=== PATIENT | female | born 1950 | race Caucasian/White ===

== ENCOUNTER 2016-11-02 17:35 | Inpatient (IN) ==
[2016-11-02 18:44] LABS: Appearance,Urine HAZY; Bacteria,Urine FEW /hpf (0); Bilirubin,Urine NEG (NEG); Color,Urine YELLOW; Glucose,Urine (UA) NEGATIVE (NEG); Leukocyte Esterase,Urine 250 /uL (NEG); Mucus,Urine FEW /hpf (0); Nitrate,Urine POS (NEG); Protein,Urine 30 mg/dL (NEG); Specific Gravity,Urine 1.015 (1.000-1.035); Urine Blood 0.03 mg/dL (<0.03); Urine RBC 4 /hpf (0-1); Urine Squamous Epithelial Cell 4 /hpf (0-4); Urine Transitional Epi Cells < 1 /hpf (0-2); Urine WBC 131 /hpf (0-4); Urobilinogen,Urine NEG (NEG)
[2016-11-02 19:03] LABS: Basophils # (Auto) 0 K/mcL (0.0-0.3); Basophils % (Auto) 0 % (0.0-2.0); Eosinophils # (Auto) 0 K/mcL (0.0-0.7); Eosinophils % (Auto) 0.1 % (0.0-7.0); Granulocytes % (Auto) 91.8 % (38.0-78.0); Lymphocytes # (Auto) 0.5 K/mcL (1.5-4.8); Lymphocytes % (Auto) 3.5 % (15.5-49.0); Mean Cell Volume 83.6 fL (80.0-100.0); Mean Corpuscular HGB Conc 32.3 g/dL (31.0-36.0); Monocytes # (Auto) 0.6 K/mcL (0.1-0.9); Monocytes % (Auto) 4.6 % (1.0-9.0); Platelet Count 221 K/mcL (140-440); RBC 4.53 M/mcL (4.00-5.20); Red Cell Distribution Width 14.4 % (11.5-14.5)
--- NOTE | 2016-11-02 19:06 | Emergency Department Note ---
Fever HPI - General Chief Complaint: Fever Stated Complaint: SOB, fever Time Seen by Provider: 11/02/16 17:36 Source: family (Her is with her today), EMS Mode of arrival: EMS Limitations: no limitations - History of Present Illness HPI Narrative: 66-year-old female presents with confusion and fever. She was brought in by EMS and is accompanied by her . Recently she has had sinus congestion and frequently gets sinus infections. She has a history of hydrocephalus. She started having chills earlier today and when her came home from work he found her half way on the bed. She denies any falls. She is extremely weak and confusion has gotten better since she is been in the ED. She has not had any urinary symptoms or abdominal pain. She has not had any GI symptoms. She has not started any new medications. She is prediabetic. She was taking metformin for this but has stopped in the past couple weeks. He does not have any numbness or tingling. She does have a headache. She is not able to ambulate on her own when EMS arrived. - Related Data Home Medications Medication Instructions Recorded Confirmed Bisoprolol/Hctz 5Mg [Ziac 5Mg] 2.5 mg PO DAILY 08/20/15 11/02/16 Lansoprazole [Prevacid] 30 mg PO DAILY 08/20/15 11/02/16 Levothyroxine [Synthroid] 75 mcg PO DAILY 08/20/15 11/02/16 Citalopram Hydrobromide 10 mg PO DAILY 11/02/16 11/02/16 [Citalopram HBr] Losartan [Cozaar] 50 mg PO BID 11/02/16 11/02/16 Oxybutynin Chloride [Ditropan] 5 mg PO DAILY 11/02/16 11/02/16 Allergies Allergy/AdvReac Type Severity Reaction Status Date / Time moxifloxacin [From Avelox] Allergy Severe Hives Verified 08/20/15 16:04 Review of Systems All systems ED: reviewed and negative except as stated. Fever PMH - Past Medical History Medical history: Reports: diabetes, other (hydrocephalus) Physical Exam - General Limitations: no limitations, altered mental status (She has confusion on and off throughout her stay in the ED) General appearance: alert, in no apparent distress - Head Head exam: atraumatic - Eye Eye exam: Present: normal appearance, periorbital tenderness (maxillary sinuses) - ENT ENT exam: normal exam, normal oropharynx, mucous membranes moist, TM's normal bilaterally - Neck Neck exam: Present: normal inspection, full ROM. Absent: tenderness, lymphadenopathy - Chest Chest inspection: Present: normal inspection, symmetric chest wall rise - Respiratory Respiratory exam: Present: normal lung sounds bilaterally. Absent: wheezes - Cardiovascular Cardiovascular exam: Present: tachycardia, normal heart sounds - Abdominal Exam Abdominal exam: Present: soft, normal bowel sounds. Absent: distention, tenderness, guarding, rebound, rigidity - Extremities Exam Extremities exam: Present: normal inspection, full ROM - Neurological Exam Neurological exam: Present: alert, oriented X3 - Psychiatric Psychiatric exam: Present: normal affect, normal mood - Skin Skin exam: Present: warm, dry, intact Course Course Narrative: Patient will be admitted by the hospitalist. A first dose of azithromycin was started in the ED. Transfer of care to Dr. Banuelos Vital Signs Temperature 100.1 F H 11/02/16 17:35 Pulse Rate 109 H 11/02/16 17:35 Respiratory Rate 20 11/02/16 17:35 Blood Pressure 121/60 11/02/16 17:35 Pulse Oximetry (%) 95 11/02/16 17:35 Temperature 99.3 F 11/02/16 19:20 Pulse Rate 85 11/02/16 19:20 Respiratory Rate 22 11/02/16 19:20 Blood Pressure 118/50 11/02/16 19:20 Pulse Oximetry (%) 95 11/02/16 19:20 Fever - Lab Data Result diagrams: 11/02/16 18:19 11/02/16 18:19 Lab Results 11/02/16 11/02/16 11/02/16 Range/Units 18:05 18:19 18:19 WBC 13.9 H (4.5-11.0) K/mcL RBC 4.53 (4.00-5.20) M/mcL Hgb 12.2 (12.0-15.0) g/dL Hct 37.9 (36.0-48.0) % MCV 83.6 (80.0-100.0) fL MCH 27.0 (26.0-34.0) pg MCHC 32.3 (31.0-36.0) g/dL RDW 14.4 (11.5-14.5) % Plt Count 221 (140-440) K/mcL MPV 7.3 L (7.4-10.4) fL Gran % 91.8 H (38.0-78.0) % Lymph % (Auto) 3.5 L (15.5-49.0) % Foster % (Auto) 4.6 (1.0-9.0) % Eos % (Auto) 0.1 (0.0-7.0) % Baso % (Auto) 0 (0.0-2.0) % Gran # 12.7 H (1.8-8.0) K/mcL Lymph # 0.5 L (1.5-4.8) K/mcL Foster # 0.6 (0.1-0.9) K/mcL Eos # 0 (0.0-0.7) K/mcL Baso # 0 (0.0-0.3) K/mcL VBG Lactic Acid (0.5-2.2) mmol/L Sodium 138 (133-145) mmol/L Potassium 3.4 (3.3-5.1) mmol/L Chloride 100 (96-108) mmol/L Carbon Dioxide 25 (22-30) mmol/L Anion Gap 13.0 (8-16) BUN 14 (8-23) mg/dl Creatinine 1.0 (0.6-1.1) mg/dl GFR Calculation 58 Glucose 220 H (70-105) mg/dL Calcium 8.9 (8.6-10.4) mg/dl Total Bilirubin 0.7 (0.0-1.0) mg/dL AST 16 (0-37) U/l ALT 14 (0-40) U/l Alkaline Phosphatase 118 H (39-117) U/L C-Reactive Protein 9.8 H (0.0-0.8) mg/dl Total Protein 6.7 (5.9-8.4) gm/dL Albumin 3.9 (3.2-5.2) gm/dL Globulin 2.8 (2.2-3.7) gm/dL Albumin/Globulin Ratio 1.4 (1.0-2.3) Urine Color Yellow Urine Appearance Hazy Urine pH 5.0 (5.0-9.0) Ur Specific [place] 1.015 (1.000-1.035) Urine Protein 30 A (NEG) mg/dL Urine Glucose (UA) Negative (NEG) mg/dL Urine Ketones Neg (NEG) mg/dL Urine Occult Blood 0.03 A (<0.03) mg/dL Urine Nitrate Pos A (NEG) Urine Bilirubin Neg (NEG) mg/dL Urine Urobilinogen Neg (NEG) mg/dL Ur Leukocyte Esterase 250 A (NEG) /uL Urine RBC 4 H (0-1) /hpf Urine WBC 131 H (0-4) /hpf Ur Squamous Epith Cells 4 (0-4) /hpf Ur Transition Epith Cell < 1 (0-2) /hpf Urine Bacteria Few A (0) /hpf Urine Mucus Few (0) /hpf Ur Culture Indicated? Yes 11/02/16 Range/Units 18:19 WBC (4.5-11.0) K/mcL RBC (4.00-5.20) M/mcL Hgb (12.0-15.0) g/dL Hct (36.0-48.0) % MCV (80.0-100.0) fL MCH (26.0-34.0) pg MCHC (31.0-36.0) g/dL RDW (11.5-14.5) % Plt Count (140-440) K/mcL MPV (7.4-10.4) fL Gran % (38.0-78.0) % Lymph % (Auto) (15.5-49.0) % Foster % (Auto) (1.0-9.0) % Eos % (Auto) (0.0-7.0) % Baso % (Auto) (0.0-2.0) % Gran # (1.8-8.0) K/mcL Lymph # (1.5-4.8) K/mcL Foster # (0.1-0.9) K/mcL Eos # (0.0-0.7) K/mcL Baso # (0.0-0.3) K/mcL VBG Lactic Acid 1.4 (0.5-2.2) mmol/L Sodium (133-145) mmol/L Potassium (3.3-5.1) mmol/L Chloride (96-108) mmol/L Carbon Dioxide (22-30) mmol/L Anion Gap (8-16) BUN (8-23) mg/dl Creatinine (0.6-1.1) mg/dl GFR Calculation Glucose (70-105) mg/dL Calcium (8.6-10.4) mg/dl Total Bilirubin (0.0-1.0) mg/dL AST (0-37) U/l ALT (0-40) U/l Alkaline Phosphatase (39-117) U/L C-Reactive Protein (0.0-0.8) mg/dl Total Protein (5.9-8.4) gm/dL Albumin (3.2-5.2) gm/dL Globulin (2.2-3.7) gm/dL Albumin/Globulin Ratio (1.0-2.3) Urine Color Urine Appearance Urine pH (5.0-9.0) Ur Specific [place] (1.000-1.035) Urine Protein (NEG) mg/dL Urine Glucose (UA) (NEG) mg/dL Urine Ketones (NEG) mg/dL Urine Occult Blood (<0.03) mg/dL Urine Nitrate (NEG) Urine Bilirubin (NEG) mg/dL Urine Urobilinogen (NEG) mg/dL Ur Leukocyte Esterase (NEG) /uL Urine RBC (0-1) /hpf Urine WBC (0-4) /hpf Ur Squamous Epith Cells (0-4) /hpf Ur Transition Epith Cell (0-2) /hpf Urine Bacteria (0) /hpf Urine Mucus (0) /hpf Ur Culture Indicated? Disposition Clinical Impression: Urinary tract infection, Community acquired pneumonia, Sepsis Disposition: Xfer As Inpt ([facility]) Condition: Fair Referrals: Mohinder Malik MD [Primary Care Provider] -
[2016-11-02 19:22] LABS: ALT/SGPT 14 U/l (0-40); Albumin 3.9 gm/dL (3.2-5.2); Albumin/Globulin Ratio 1.4 (1.0-2.3); Alkaline Phosphatase 118 U/L (39-117); Blood Urea Nitrogen 14 mg/dl (8-23); C-Reactive Protein 9.8 mg/dl (0.0-0.8)
[2016-11-02] MEDS ORDERED: AZITHROMYCIN 500 MG in DEXTROSE 5% IN WATER 250 ML IV ONE (21:08)
[2016-11-02] MEDS ORDERED: cefTRIAXone 1 GM in DEXTROSE 5% IN WATER 50 ML IV ONE (21:24)
--- NOTE | 2016-11-02 21:34 | Internal Med History&Physical ---
Medical - H&P: HPI Patient information: Note initiated : 11/02/16 at 9:29 pm Service Date, if different from initiated Date: [] Patient: Shabana Espinosa 66 y/o F admitted on for SOB, fever. Chief Complaint: [] History of present illness: Ms. Espinosa is a 66 year old female who presents to the hospital with complaints of fever, chills, alerted mental status. The patient was her self 2 days ago, yesterday she was more tired than usual, and slept more. She also reported some chills. This am he condition worsened, she had fevers and chills with rigors, her found her in the house half on bed/ half on floor, she was confused. EMS was called who evaluated the patient and noted her to be hypoxic with 86% on Room air, tachycardic and febrile She was brought in the hospital for further management. In the ER the patient lab work showed that she had ua positive for UTI, wbc elevated, and elevated glucose, rest of the lab work was unremarkable, her X ray is not reported but appears negative to me, She received fluids in the ER and her mental status improved. She was at her baseline mental status during my eval. Her was at bedside to provide history. The patient noted she has had some cough, but denied any expectoration, she has sinus issues, which are chronic, She denied any burning urine, foul smelling urine, or increased frequency. She always has chr urinary increased frequency, so nothing out of ordinary. - Constitutional Constitutional: Present: chills, fever(s), malaise, weakness - EENT Eyes: Absent: change in vision, diplopia Nose, mouth and throat: Present: dizziness. Absent: dental pain, disequilibrium - Cardiovascular Cardiovascular: Absent: chest pain, chest pain at rest, palpatations, radiating pain, rapid heart rate, slow heart rate, syncope - Respiratory Respiratory: Present: cough. Absent: dyspnea on exertion, chest congestion, excessive phlegm production, change in phlegm color - Genitourinary Genitourinary: Present: urinary frequency, urinary urgency. Absent: urinary hesitancy, urinary incontinence - Musculoskeletal Musculoskeletal: Present: back pain. Absent: joint swelling, limited range of motion - Integumentary Integumentary: Absent: wounds, jaundice - Neurological Neurological: Present: headache(s). Absent: disequilibrium, dizziness, focal weakness, frequent falls - Psychiatric Psychiatric: Present: confusion. Absent: behavioral changes - Endocrine Endocrine: Absent: polydipsia, polyphagia, polyuria - Hematologic/Lymphatic Hematologic/Lymphatic: Absent: easy bleeding, easy bruising - Allergic/Immunologic Allergic/Immunologic: Absent: uticaria, wheezing Medical - H&P: PMH Medical history: h/ htn, dm, hld, hydrocephalus (no shunt placed) Surgical history: right knee replacement Pertinent family history: father with DM, cva, no other relevant history Social history: lives with no smoking, no etoh, no drugs Medical - H&P: Meds Home Medications Medication Instructions Recorded Confirmed Type Bisoprolol/Hctz 5Mg [Ziac 5Mg] 2.5 mg PO DAILY 08/20/15 11/02/16 History Lansoprazole [Prevacid] 30 mg PO DAILY 08/20/15 11/02/16 History Levothyroxine [Synthroid] 75 mcg PO DAILY 08/20/15 11/02/16 History Citalopram Hydrobromide 10 mg PO DAILY 11/02/16 11/02/16 History [Citalopram HBr] Losartan [Cozaar] 50 mg PO BID 11/02/16 11/02/16 History Oxybutynin Chloride [Ditropan] 5 mg PO DAILY 11/02/16 11/02/16 History Allergies Allergy/AdvReac Type Severity Reaction Status Date / Time moxifloxacin [From Avelox] Allergy Severe Hives Verified 08/20/15 16:04 Medical - H&P: Exam - Constitutional Vitals: Temp Pulse Resp BP Pulse Ox 99.3 F 85 22 118/50 95 11/02/16 19:20 11/02/16 19:20 11/02/16 19:20 11/02/16 19:20 11/02/16 19:20 General appearance: cooperative, no acute distress - Head Head exam: Present: atraumatic, normal inspection - Eye Eye exam: Present: PERRL. Absent: periorbital swelling, periorbital tenderness , scleral icterus - ENT ENT exam: Present: mucous membranes dry - Neck Neck exam: Present: normal inspection. Absent: tenderness - Respiratory Respiratory exam: Present: normal respiratory exam. Absent: accessory muscle use, prolonged expiratory phase, rhonchi, stridor, wheezes - Cardiovascular Cardiovascular exam: Present: normal rate and rhythm, +S1, +S2 - GI/Abdominal GI/Abdominal exam: Present: normal bowel sounds, soft. Absent: rebound, rigid, tenderness - Extremities Exam Extremities exam: Present: Foot pink and warm, neurovascular intact. Absent: pedal edema - Back Exam Back exam: Present: CVA tenderness (R), normal inspection. Absent: tenderness - Neurological Exam Neurological exam: Present: alert, CN II-XII intact, oriented X3. Absent: motor sensory deficit - Psychiatric Psychiatric exam: Absent: agitated, anxious - Skin Skin exam: Present: warm. Absent: rash, urticaria Medical - H&P: Reslt - Labs CBC & Chem 7: 11/02/16 18:19 11/02/16 18:19 Labs: Short CBC 11/02/16 Range/Units 18:19 WBC 13.9 H (4.5-11.0) K/mcL Hgb 12.2 (12.0-15.0) g/dL Hct 37.9 (36.0-48.0) % Plt Count 221 (140-440) K/mcL BMP 11/02/16 18:19 Sodium 138 Potassium 3.4 Chloride 100 Carbon Dioxide 25 BUN 14 Creatinine 1.0 Glucose 220 H Calcium 8.9 Liver Function 11/02/16 Range/Units 18:19 Total Bilirubin 0.7 (0.0-1.0) mg/dL AST 16 (0-37) U/l ALT 14 (0-40) U/l Alkaline Phosphatase 118 H (39-117) U/L Albumin 3.9 (3.2-5.2) gm/dL Urine 11/02/16 Range/Units 18:05 Urine Color Yellow Urine Appearance Hazy Urine pH 5.0 (5.0-9.0) Ur Specific [place] 1.015 (1.000-1.035) Urine Protein 30 A (NEG) mg/dL Urine Glucose (UA) Negative (NEG) mg/dL Medical - H&P: A/P (1) Pyelonephritis, acute Current visit: Yes Status: Acute (2) Sepsis Current visit: Yes Status: Acute (3) Hypertension Current visit: Yes Status: Acute (4) Diabetes mellitus Current visit: Yes Status: Acute (5) Back pain Current visit: Yes Status: Acute (6) Headache Current visit: Yes Status: Acute (7) Bronchitis Current visit: Yes Status: Acute (8) Acute respiratory failure with hypoxia Current visit: Yes Status: Acute - Narrative A/P Narrative: The patient is admitted to the hospital with diagnosis of acute pylenepritis with sepsis. He bp is stable, but she has elevated wbc, ua suggestive of uti and right cva tenderness. She will be treated with IV fluids, IV rocephin, will get urine and blood cultures. The patient has been called in as pna in the ER, X Ray looks ok to me, but she has increased oxygen requirements. For now will cover with doxycycline. Rocephin should cover any CAP, for now it seems she just has some bronchitis, flu is reported negative. DM borderline, glucose high today, will keep her on sliding scale insulin Hold bp medications for now, resume in AM if patient improves Oxygen supplementation via nasal canula to keep osat > 90 DVT - Hep sq Diet diabetic Progonosis guarded.
[2016-11-02] MEDS ORDERED: MAGNESIUM HYDROXIDE 30 ML ORAL.SUSP PO PRN (22:47)
[2016-11-02] MEDS ORDERED: MAG HYDROX/AL HYDROX/SIMETH 30 ML ORAL.SUSP PO PRN (22:47)
[2016-11-02] MEDS ORDERED: NALOXONE HCL 0.4 MG/ML VIAL IV PRN (22:47)
[2016-11-02] MEDS ORDERED: BISACODYL 10 MG SUPP.RECT PR PRN (22:47)
[2016-11-02] MEDS ORDERED: ONDANSETRON 4 MG/2 ML VIAL IV PRN (22:47)
[2016-11-02] MEDS ORDERED: oxyCODONE HCL 5 MG TABLET PO PRN (22:47)
[2016-11-02] MEDS ORDERED: FLEETS ADULT ENEMA PR PRN (22:47)
[2016-11-02] MEDS ORDERED: cefTRIAXone 1 GM in DEXTROSE 5% IN WATER 50 ML IV SCH (22:47)
[2016-11-02] MEDS ORDERED: IBUPROFEN 600 MG TABLET PO PRN (22:47)
[2016-11-02] MEDS ORDERED: DEXTROSE 50% 50 ML VIAL IV PRN (22:47)
[2016-11-02] MEDS ORDERED: PROMETHAZINE 25 MG/ML VIAL IV PRN (22:47)
[2016-11-02] MEDS ORDERED: ACETAMINOPHEN 325 MG TABLET PO PRN (22:47)
[2016-11-02] MEDS: 0.9 % SODIUM CHLORIDE 10 ML SYRINGE IV SCH (22:49)
[2016-11-02] MEDS: 0.9 % SODIUM CHLORIDE 1,000 ML IV SCH (22:49)
[2016-11-02] MEDS ORDERED: oxyCODONE HCL 5 MG TABLET PO ONE (23:08)
[2016-11-02] MEDS ORDERED: ACETAMINOPHEN 325 MG TABLET PO ONE (23:08)
[2016-11-03] MEDS: 0.9 % SODIUM CHLORIDE 1,000 ML IV SCH ×3 (00:53→14:19)
[2016-11-03] MEDS: 0.9 % SODIUM CHLORIDE 10 ML SYRINGE IV SCH ×2 (05:38→14:17)
[2016-11-03 05:50] LABS: Mean Cell Volume 84.4 fL (80.0-100.0); Mean Corpuscular HGB Conc 32.1 g/dL (31.0-36.0); Mean Corpuscular Hemoglobin 27.1 pg (26.0-34.0); Platelet Count 166 K/mcL (140-440); RBC 3.87 M/mcL (4.00-5.20); Red Cell Distribution Width 14.6 % (11.5-14.5)
[2016-11-03 06:07] LABS: ALT/SGPT 11 U/l (0-40); Albumin 3.4 gm/dL (3.2-5.2); Albumin/Globulin Ratio 1.5 (1.0-2.3); Alkaline Phosphatase 97 U/L (39-117); Bilirubin,Direct < 0.2 mg/dL (0.0-0.3); Blood Urea Nitrogen 12 mg/dl (8-23); Gamma Glutamyl Transpeptidase 41 U/L (5-36); Magnesium 1.8 mg/dL (1.6-2.5); Phosphorous 2.8 mg/dL (2.7-4.5); Uric Acid 3.7 mg/dL (2.5-8.0)
[2016-11-03 07:27] LABS: Band Neutrophils % 1 % (0-10); Eosinophils % (Manual) 2 % (0-7); Lymphocytes % 9 % (15-49); Monocytes % (Manual) 7 % (1-9); Platelet Estimate NORMAL (NORMAL); RBC Morphology NORMAL (NORMAL); Segmented Neutrophils % 81 % (38-78)
[2016-11-03] MEDS ORDERED: INSULIN LISPRO 1 UNIT/0.01 ML UNIT SQ SCH (07:30)
[2016-11-03] MEDS ORDERED: LEVOTHYROXINE 25 MCG TABLET PO SCH (07:30)
[2016-11-03] MEDS ORDERED: POTASSIUM CHLORIDE 20 MEQ PACKET PO ONE (07:50)
[2016-11-03] MEDS ORDERED: 0.9 % SODIUM CHLORIDE 1,000 ML IV ONE (08:17)
[2016-11-03] MEDS ORDERED: CITALOPRAM 20 MG TABLET PO SCH (09:00)
[2016-11-03] MEDS ORDERED: HEPARIN 5,000 UNIT/ML VIAL SQ SCH (09:00)
[2016-11-03] MEDS ORDERED: DOXYCYCLINE HYCLATE 100 MG TABLET.ORL PO SCH (09:00)
[2016-11-03] MEDS ORDERED: OXYBUTYNIN CHLORIDE 5 MG TABLET PO SCH (09:00)
[2016-11-03] MEDS ORDERED: DOCUSATE SODIUM 100 MG CAPSULE PO SCH (09:00)
[2016-11-03] MEDS ORDERED: FAMOTIDINE/PF 20 MG/2 ML VIAL IV SCH (09:00)
--- NOTE | 2016-11-03 09:14 | Internal Med Progress Note ---
Medical - PN: Subj Patient information: Note initiated : 11/03/16 at 9:11 am Service Date, if different from initiated Date: [] Patient: Shabana Espinosa 66 y/o F admitted on 11/02/16 for SOB, fever. Chief Complaint: [] Interval history: The patient seen examined, this AM by the bedside no acute overnight events, but did have low grade temp The patient this AM is not doing so well, is delirious trying to take off her clothes and get out of bed She did not endorse any specific complaints, but she did get IV antibiotic yesterday. her bp is stable, and getting fluids, but she seems tachycardic this AM Pertinent ROS: Denies headache, dizziness Denies chest pain, palpitations Denies cough or shortness of breath Denies abdominal pain, nausea or vomiting. - Constitutional Vitals: Vital Signs Temp Pulse Resp BP Pulse Ox 98.3 F 107 H 18 142/60 95 11/03/16 07:44 11/03/16 07:44 11/03/16 07:44 11/03/16 07:44 11/03/16 07:44 Period Temp Pulse Resp BP Sys/Arias Pulse Ox Last 24 Hr 98.3 F-99.2 F 85-107 16-22 105-142/55-70 93-96 Intake and Output 11/02/16 11/03/16 11/03/16 21:59 05:59 13:59 Intake Total 257 / 307 Output Total 250 / 250 Balance 7 / 57 Weight 160 lb Intake & Output: Intake & Output 11/02/16 11/03/16 11/03/16 21:59 05:59 13:59 Intake Total 257 / 307 Output Total 250 / 250 Balance 7 / 57 Weight 160 lb Intake: IV 207 / 207 Sodium Chloride 0.9% 1, 207 / 207 000 ml @ 100 mls/hr IV . Q10H [facility]IA Rx#:[id number] Oral 50 / 50 Output: Void Amount 250 / 250 Other: # Voids 1 Exam: Constitutional; febrile, cooperative, aoox3 Eyes- No icterus, No periorbital swelling Ears- Ext ear normal, hearing normal to conversation. Neck- Midline trachea, supple Respiratory system: Air Entry equal on both sides, No crackles or wheezing, no rhonchi. CVS- Rate rhythm regular, S1,S2 heard, no gallop, no rub.tachycardic Abdomen- Soft nontender abdomen, no organomegaly, no tenderness, no guarding or rigidity, [employer]- moving all extremities, no focal deficit noted. Medical - PN: Obj Da - Labs CBC & Chem 7: 11/03/16 04:35 11/03/16 04:35 Labs: Abnormal Lab Results 11/03/16 11/03/16 04:35 04:35 WBC 11.4 H RBC 3.87 L Hgb 10.5 L Hct 32.7 L RDW 14.6 H Seg Neutrophils % 81 H Lymphocytes % 9 L Potassium 3.2 L Glucose 134 H Calcium 8.2 L GGT 41 H Total Protein 5.7 L Meds: Medications Acetaminophen (Tylenol) 650 mg PO Q6HP PRN PRN Reason: PAIN/FEVER > 101 Last Admin: 11/02/16 22:58 Dose: 650 mg Al Hydrox/Mg Hydrox/Simethicone (Maalox) 30 ml PO Q6HP PRN PRN Reason: Dyspepsia Bisacodyl (Dulcolax) 10 mg AK Q2-3DAYS PRN PRN Reason: Constipation Citalopram Hydrobromide (Celexa) 10 mg PO DAILY [facility] Last Admin: 11/03/16 08:23 Dose: 10 mg Dextrose (Dextrose 50%) 0 ml IV UD PRN PRN Reason: Hypoglycemia Diagnostic Test (Pha) (Accu-Chek) 1 each FS ACHS [facility] Last Admin: 11/03/16 07:19 Dose: 1 each Docusate Sodium (Colace) 100 mg PO BID [facility] Last Admin: 11/03/16 08:24 Dose: 100 mg Doxycycline Hyclate (Doxycycline Hyclate) 100 mg PO BID [facility] Famotidine (Pepcid) 20 mg IV Q12 [facility] Last Admin: 11/03/16 08:22 Dose: 20 mg Heparin Sodium (Porcine) (Heparin) 5,000 unit SQ Q12 [facility] Last Admin: 11/03/16 08:22 Dose: 5,000 unit Sodium Chloride (Sodium Chloride 0.9%) 1,000 mls @ 100 mls/hr IV .Q10H [facility] Last Admin: 11/03/16 00:53 Dose: 100 mls/hr Ceftriaxone Sodium 1 gm/ (Dextrose) 50 mls @ 100 mls/hr IV DAILY [facility] Ibuprofen (Motrin) 600 mg PO QIDP PRN PRN Reason: PAIN/FEVER > 101 Insulin Human Lispro (Humalog) 0 unit SQ ACHS [facility] PRN Reason: Protocol Last Admin: 11/03/16 07:19 Dose: Not Given Levothyroxine Sodium (Synthroid) 75 mcg PO ACB [facility] Last Admin: 11/03/16 07:33 Dose: 75 mcg Magnesium Hydroxide (Milk Of Magnesia) 30 ml PO DAILYP PRN PRN Reason: Constipation Naloxone HCl (Narcan) 0.1 mg IV Q2MIN PRN PRN Reason: Opiate Reversal Ondansetron HCl (Zofran) 4 mg IV Q6HP PRN PRN Reason: Nausea And Vomiting Oxybutynin Chloride (Ditropan) 5 mg PO DAILY [facility] Last Admin: 11/03/16 08:22 Dose: 5 mg Oxycodone HCl (Roxicodone) 5 mg PO Q4HP PRN PRN Reason: Pain Last Admin: 11/02/16 22:57 Dose: 5 mg Promethazine HCl (Phenergan) 12.5 mg IV Q6HP PRN PRN Reason: Nausea And Vomiting Sodium Biphosphate/Sodium Phosphate (Fleets Adult) 1 dose AK Q3-4DAYS PRN PRN Reason: Constipation Sodium Chloride (Saline Flush) 10 ml IV Q8 [facility] Last Admin: 11/03/16 05:38 Dose: Not Given Medical - PN: A/P - Time Spent With Patient Total time spent is greater than 50% in coordination of care (as documented) at patient's floor/unit and/or counseling patient: (1) Pyelonephritis, acute Status: Acute Current Visit: Yes (2) Sepsis Status: Acute Current Visit: Yes (3) Hypertension Status: Acute Current Visit: Yes (4) Diabetes mellitus Status: Acute Current Visit: Yes (5) Back pain Status: Acute Current Visit: Yes (6) Bronchitis Status: Acute Current Visit: Yes (7) Acute respiratory failure with hypoxia Status: Acute Current Visit: Yes - Narrative A/P Narrative: The patients admitted for sepsis, Pyelonephritis. patient deilrous this AM, with tachcardia, given that wbc is trending down,its possible that tachycardia is from delirium however will give 1 L bolus NS, Patient is on IV antibiotics Urine culture is growing gram neg bacillus. For her delirium, frequent reorientation is planned, at bedside, and tylenol given for back pain. If she gets agitated will try low dose of risperidone. If patient worsens, will transfer her to PCU. Medical - PN: Qual - Stroke Symptom Onset Unknown: No - VTE Deep Vein Thrombosis/Pulmonary Embolism Present on Admission: No
--- NOTE | 2016-11-03 09:45 | XRay Report ---
CLINICAL INFORMATION: Hypoxia COMPARISON: None. FINDINGS: The heart is minimally enlarged. Small hiatal hernia is noted. The remainder of the mediastinum and pulmonary vessels are normal. The lungs are clear. Mild elevation the right diaphragm is unchanged compared to a lumbar plain films from 11/16/2014 which partially shows this region. There are no effusions IMPRESSION: No acute disease Small hiatal hernia Mild chronic elevation - right diaphragm Interpreted and Authenticated by: Alex Holman 11/03/16
[2016-11-03] MEDS ORDERED: ONDANSETRON 4 MG/2 ML VIAL IV PRN (11:27)
[2016-11-03] MEDS ORDERED: FLEETS ADULT ENEMA PR PRN (11:27)
[2016-11-03] MEDS ORDERED: MAG HYDROX/AL HYDROX/SIMETH 30 ML ORAL.SUSP PO PRN (11:27)
[2016-11-03] MEDS ORDERED: ACETAMINOPHEN 325 MG TABLET PO PRN (11:27)
[2016-11-03] MEDS ORDERED: MAGNESIUM HYDROXIDE 30 ML ORAL.SUSP PO PRN (11:27)
[2016-11-03] MEDS ORDERED: PROMETHAZINE 25 MG/ML VIAL IV PRN (11:27)
[2016-11-03] MEDS ORDERED: BISACODYL 10 MG SUPP.RECT PR PRN (11:27)
[2016-11-03] MEDS ORDERED: DEXTROSE 50% 50 ML VIAL IV PRN (11:27)
[2016-11-03] MEDS ORDERED: NALOXONE HCL 0.4 MG/ML VIAL IV PRN (11:27)
[2016-11-03] MEDS: cefTRIAXone 2 GM in DEXTROSE 5% IN WATER 50 ML IV SCH (12:14)
[2016-11-03] MEDS ORDERED: cefTRIAXone 1 GM in DEXTROSE 5% IN WATER 50 ML IV SCH ×2 (13:00)
[2016-11-03] MEDS: INSULIN LISPRO 1 UNIT/0.01 ML UNIT SQ SCH ×3 (14:14→20:40)
[2016-11-03] MEDS: IBUPROFEN 600 MG TABLET PO PRN (18:42)
[2016-11-03] MEDS: FAMOTIDINE/PF 20 MG/2 ML VIAL IV SCH (20:08)
[2016-11-03] MEDS: HEPARIN 5,000 UNIT/ML VIAL SQ SCH (20:08)
[2016-11-03] MEDS: DOXYCYCLINE HYCLATE 100 MG TABLET.ORL PO SCH (20:08)
[2016-11-03] MEDS: DOCUSATE SODIUM 100 MG CAPSULE PO SCH (20:08)
[2016-11-04] MEDS: 0.9 % SODIUM CHLORIDE 10 ML SYRINGE IV SCH ×4 (00:48→20:52)
[2016-11-04] MEDS: 0.9 % SODIUM CHLORIDE 1,000 ML IV SCH ×6 (00:52→22:10)
[2016-11-04 05:48] LABS: Basophils # (Auto) 0 K/mcL (0.0-0.3); Basophils % (Auto) 0.4 % (0.0-2.0); Eosinophils # (Auto) 0.1 K/mcL (0.0-0.7); Eosinophils % (Auto) 1.9 % (0.0-7.0); Granulocytes % (Auto) 79.8 % (38.0-78.0); Lymphocytes # (Auto) 0.7 K/mcL (1.5-4.8); Lymphocytes % (Auto) 9.3 % (15.5-49.0); Mean Cell Volume 84.5 fL (80.0-100.0); Mean Corpuscular HGB Conc 32.2 g/dL (31.0-36.0); Mean Corpuscular Hemoglobin 27.2 pg (26.0-34.0); Monocytes # (Auto) 0.6 K/mcL (0.1-0.9); Monocytes % (Auto) 8.6 % (1.0-9.0); Platelet Count 149 K/mcL (140-440); RBC 3.94 M/mcL (4.00-5.20); Red Cell Distribution Width 14.9 % (11.5-14.5)
[2016-11-04 06:00] LABS: ALT/SGPT 12 U/l (0-40); Albumin 3.2 gm/dL (3.2-5.2); Albumin/Globulin Ratio 1.2 (1.0-2.3); Alkaline Phosphatase 95 U/L (39-117); Bilirubin,Direct < 0.2 mg/dL (0.0-0.3); Blood Urea Nitrogen 9 mg/dl (8-23); Gamma Glutamyl Transpeptidase 38 U/L (5-36); Magnesium 1.9 mg/dL (1.6-2.5); Uric Acid 3.2 mg/dL (2.5-8.0)
[2016-11-04] MEDS: INSULIN LISPRO 1 UNIT/0.01 ML UNIT SQ SCH ×4 (06:55→20:51)
[2016-11-04] MEDS: LEVOTHYROXINE 25 MCG TABLET PO SCH (09:55)
[2016-11-04] MEDS: OXYBUTYNIN CHLORIDE 5 MG TABLET PO SCH (09:56)
[2016-11-04] MEDS: cefTRIAXone 2 GM in DEXTROSE 5% IN WATER 50 ML IV SCH (09:56)
[2016-11-04] MEDS: NEUTRA PHOS 1 PACKET PO SCH ×2 (09:59→20:51)
[2016-11-04] MEDS: DOXYCYCLINE HYCLATE 100 MG TABLET.ORL PO SCH (09:59)
[2016-11-04] MEDS: CITALOPRAM 20 MG TABLET PO SCH (09:59)
[2016-11-04] MEDS: DOCUSATE SODIUM 100 MG CAPSULE PO SCH ×2 (09:59→20:52)
[2016-11-04] MEDS: HEPARIN 5,000 UNIT/ML VIAL SQ SCH ×2 (10:00→20:51)
[2016-11-04] MEDS: FAMOTIDINE/PF 20 MG/2 ML VIAL IV SCH ×2 (10:05→20:51)
--- NOTE | 2016-11-04 11:25 | Internal Med Progress Note ---
Medical - PN: Subj Patient information: Note initiated : 11/04/16 at 11:23 am Service Date, if different from initiated Date: [] Patient: Shabana Espinosa 66 y/o F admitted on 11/02/16 for SOB, Fever/Acute Pylenepritis with Sepsis. Chief Complaint: [] Interval history: Patient seen examined much better this AM by the bedside back to baseline mental status vitals stable, but was febrile yesterday at midnight. THe patients blood culture was positive for gram neg bacilli, urine culture same , awaiting isolation and sensitivity. The patient otherwise mari not report any new concerns. Pertinent ROS: Denies headache, dizziness Denies chest pain, palpitations Denies cough or shortness of breath Denies abdominal pain, nausea or vomiting. - Constitutional Vitals: Vital Signs Temp Pulse Resp BP Pulse Ox 99.2 F 84 20 147/87 97 11/04/16 04:00 11/04/16 04:00 11/04/16 08:00 11/04/16 08:00 11/04/16 08:00 Period Temp Pulse Resp BP Sys/Arias Pulse Ox Last 24 Hr 98.4 F-100.3 F 70-100 16-20 132-148/71-87 94-97 Intake and Output 11/03/16 11/04/16 11/04/16 21:59 05:59 13:59 Intake Total 1720 / 1720 1075 / 1075 Output Total 925 / 925 1175 / 1175 Balance 795 / 795 -100 / -100 Weight 172 lb 14.4 oz Intake & Output: Intake & Output 11/03/16 11/04/16 11/04/16 21:59 05:59 13:59 Intake Total 1720 / 1720 1075 / 1075 Output Total 925 / 925 1175 / 1175 Balance 795 / 795 -100 / -100 Weight 172 lb 14.4 oz Intake: IV 1300 / 1300 1000 / 1000 Sodium Chloride 0.9% 1, 1000 / 1000 1000 / 1000 000 ml @ 100 mls/hr IV . Q10H [facility] Rx#:[id number] Dextrose 5% in Water 50 50 / 50 ml @ 100 mls/hr IV DAILY [facility] with Rocephin 2 gm Rx #:[id number] Oral 420 / 420 75 / 75 Output: Urine Catheter Amount 150 / 150 Void Amount 775 / 775 1175 / 1175 Other: Meal Dinner Percent of Meal Consumed 50% Feeding Ability Independent Exam: Constitutional; Afebrile, cooperative, alert, not in distress. Eyes- No icterus, Pupils equal, reactive, No periorbital swelling Ears- Ext ear normal, hearing normal to conversation. Neck- Midline trachea, supple Respiratory system: Air Entry equal on both sides, No crackles or wheezing, no rhonchi. CVS- Rate rhythm regular, S1,S2 heard, no gallop, no rub. Abdomen- Soft nontender abdomen, no organomegaly, no tenderness, no guarding or rigidity, [employer]- AOOx3, moving all extremities, no focal deficit noted. Medical - PN: Obj Da - Labs CBC & Chem 7: 11/04/16 04:02 11/04/16 04:02 Labs: Abnormal Lab Results 11/04/16 11/04/16 11/03/16 04:02 04:02 04:35 WBC RBC 3.94 L Hgb 10.7 L Hct 33.3 L RDW 14.9 H Gran % 79.8 H Lymph % (Auto) 9.3 L Lymph # 0.7 L Seg Neutrophils % Lymphocytes % Potassium 3.2 L Glucose 134 H Calcium 8.4 L 8.2 L Phosphorus 2.0 L GGT 38 H 41 H Total Protein 5.8 L 5.7 L 11/03/16 04:35 WBC 11.4 H RBC 3.87 L Hgb 10.5 L Hct 32.7 L RDW 14.6 H Gran % Lymph % (Auto) Lymph # Seg Neutrophils % 81 H Lymphocytes % 9 L Potassium Glucose Calcium Phosphorus GGT Total Protein Meds: Medications Acetaminophen (Tylenol) 650 mg PO Q6HP PRN PRN Reason: PAIN/FEVER > 101 Last Admin: 11/03/16 11:56 Dose: 650 mg Al Hydrox/Mg Hydrox/Simethicone (Maalox) 30 ml PO Q6HP PRN PRN Reason: Dyspepsia Bisacodyl (Dulcolax) 10 mg VT Q2-3DAYS PRN PRN Reason: Constipation Citalopram Hydrobromide (Celexa) 10 mg PO DAILY [facility] Last Admin: 11/04/16 09:59 Dose: 10 mg Dextrose (Dextrose 50%) 0 ml IV UD PRN PRN Reason: Hypoglycemia Diagnostic Test (Pha) (Accu-Chek) 1 each FS ACHS [facility] Last Admin: 11/04/16 06:55 Dose: 1 each Docusate Sodium (Colace) 100 mg PO BID [facility] Last Admin: 11/04/16 09:59 Dose: 100 mg Doxycycline Hyclate (Doxycycline Hyclate) 100 mg PO BID [facility] Last Admin: 11/04/16 09:59 Dose: 100 mg Famotidine (Pepcid) 20 mg IV Q12 [facility] Last Admin: 11/04/16 10:05 Dose: 20 mg Heparin Sodium (Porcine) (Heparin) 5,000 unit SQ Q12 [facility] Last Admin: 11/04/16 10:00 Dose: 5,000 unit Sodium Chloride (Sodium Chloride 0.9%) 1,000 mls @ 100 mls/hr IV .Q10H [facility] Last Admin: 11/04/16 09:56 Dose: Not Given Ceftriaxone Sodium 2 gm/ (Dextrose) 50 mls @ 100 mls/hr IV DAILY [facility] Last Admin: 11/04/16 09:56 Dose: 100 mls/hr Ibuprofen (Motrin) 600 mg PO QIDP PRN PRN Reason: PAIN/FEVER > 101 Last Admin: 11/03/16 18:42 Dose: 600 mg Insulin Human Lispro (Humalog) 0 unit SQ [facility] PRN Reason: Protocol Last Admin: 11/04/16 06:55 Dose: Not Given Levothyroxine Sodium (Synthroid) 75 mcg PO ACB [facility] Last Admin: 11/04/16 09:55 Dose: 75 mcg Magnesium Hydroxide (Milk Of Magnesia) 30 ml PO DAILYP PRN PRN Reason: Constipation Naloxone HCl (Narcan) 0.1 mg IV Q2MIN PRN PRN Reason: Opiate Reversal Ondansetron HCl (Zofran) 4 mg IV Q6HP PRN PRN Reason: Nausea And Vomiting Oxybutynin Chloride (Ditropan) 5 mg PO DAILY [facility] Last Admin: 11/04/16 09:56 Dose: 5 mg Potassium/Phosphorus/Sodium (Neutra Phos) 1 packet PO BID [facility] Last Admin: 11/04/16 09:59 Dose: 1 packet Promethazine HCl (Phenergan) 12.5 mg IV Q6HP PRN PRN Reason: Nausea And Vomiting Sodium Biphosphate/Sodium Phosphate (Fleets Adult) 1 dose VT Q3-4DAYS PRN PRN Reason: Constipation Sodium Chloride (Saline Flush) 10 ml IV Q8 [facility] Last Admin: 11/04/16 05:05 Dose: Not Given Medical - PN: A/P - Time Spent With Patient Total time spent is greater than 50% in coordination of care (as documented) at patient's floor/unit and/or counseling patient: (1) Pyelonephritis, acute Status: Acute Current Visit: Yes (2) Sepsis Status: Acute Current Visit: Yes (3) Hypertension Status: Acute Current Visit: Yes (4) Diabetes mellitus Status: Acute Current Visit: Yes (5) Back pain Status: Acute Current Visit: Yes (6) Acute respiratory failure with hypoxia Status: Acute Current Visit: Yes (7) Bacteremia due to Gram-negative bacteria Status: Acute Current Visit: Yes - Narrative A/P Narrative: The patient blood culture was positive Will continue IV rocephin, Repeat blood cultures today Replace phosphorus, THe patient mental status is better, Dispo once repeat blood culture is negative and we have the culture and sensitivities available, likely tomorrow or sunday Medical - PN: Qual - Stroke Symptom Onset Unknown: No - VTE Deep Vein Thrombosis/Pulmonary Embolism Present on Admission: No
[2016-11-04] MEDS: IBUPROFEN 600 MG TABLET PO PRN (18:36)
[2016-11-05] MEDS: 0.9 % SODIUM CHLORIDE 1,000 ML IV SCH (04:34)
[2016-11-05 05:12] LABS: Basophils # (Auto) 0 K/mcL (0.0-0.3); Basophils % (Auto) 0.9 % (0.0-2.0); Eosinophils # (Auto) 0.2 K/mcL (0.0-0.7); Eosinophils % (Auto) 3.9 % (0.0-7.0); Lymphocytes # (Auto) 0.8 K/mcL (1.5-4.8); Lymphocytes % (Auto) 18.9 % (15.5-49.0); Mean Cell Volume 84.6 fL (80.0-100.0); Mean Corpuscular HGB Conc 32.2 g/dL (31.0-36.0); Mean Corpuscular Hemoglobin 27.2 pg (26.0-34.0); Monocytes # (Auto) 0.6 K/mcL (0.1-0.9); Monocytes % (Auto) 14.3 % (1.0-9.0); Platelet Count 173 K/mcL (140-440); RBC 4.06 M/mcL (4.00-5.20); Red Cell Distribution Width 14.3 % (11.5-14.5)
[2016-11-05 05:27] LABS: ALT/SGPT 12 U/l (0-40); Albumin 3.1 gm/dL (3.2-5.2); Albumin/Globulin Ratio 1.1 (1.0-2.3); Alkaline Phosphatase 90 U/L (39-117); Bilirubin,Direct < 0.2 mg/dL (0.0-0.3); Blood Urea Nitrogen 6 mg/dl (8-23); Gamma Glutamyl Transpeptidase 38 U/L (5-36); Magnesium 1.9 mg/dL (1.6-2.5); Phosphorous 2.4 mg/dL (2.7-4.5); Uric Acid 2.7 mg/dL (2.5-8.0)
[2016-11-05] MEDS: 0.9 % SODIUM CHLORIDE 10 ML SYRINGE IV SCH (05:31)
[2016-11-05] MEDS: INSULIN LISPRO 1 UNIT/0.01 ML UNIT SQ SCH ×2 (07:26→11:36)
[2016-11-05] MEDS: NEUTRA PHOS 1 PACKET PO SCH (08:02)
[2016-11-05] MEDS: LEVOTHYROXINE 25 MCG TABLET PO SCH (08:06)
[2016-11-05] MEDS: FAMOTIDINE/PF 20 MG/2 ML VIAL IV SCH (08:06)
[2016-11-05] MEDS: OXYBUTYNIN CHLORIDE 5 MG TABLET PO SCH (08:06)
[2016-11-05] MEDS: DOCUSATE SODIUM 100 MG CAPSULE PO SCH (08:06)
[2016-11-05] MEDS: CITALOPRAM 20 MG TABLET PO SCH (08:06)
[2016-11-05] MEDS: HEPARIN 5,000 UNIT/ML VIAL SQ SCH (08:06)
[2016-11-05] MEDS: cefTRIAXone 2 GM in DEXTROSE 5% IN WATER 50 ML IV SCH (08:13)
[2016-11-05] MEDS: IBUPROFEN 600 MG TABLET PO PRN (11:23)
--- NOTE | 2016-11-05 11:41 | Discharge Summary ---
Medical - DS: Prov Patient information: Note initiated : 11/05/16 at 11:30 am Service Date, if different from initiated Date: [] Patient: Shabana Espinosa 66 y/o F admitted on 11/02/16 for SOB, Fever/Acute Pylenepritis with Sepsis. Chief Complaint: [] Date of admission: 11/02/16 22:16 Discharge date: 11/05/16 Primary care physician: [f_Reg Prim Care Provider] Admitting clinician: Rico James Discharging clinician: Rico James Medical - DS: Meds - Discharge Medications Prescriptions: Cephalexin [Keflex] 500 mg PO BID #52 capsule Active and Home Medications: Home Medications Citalopram Hydrobromide [Citalopram HBr] 10 mg PO DAILY 11/02/16 [History Confirmed 11/02/16 Last Taken Unknown] Losartan [Cozaar] 50 mg PO BID 11/02/16 [History Confirmed 11/02/16 Last Taken Unknown] Oxybutynin Chloride [Ditropan] 5 mg PO DAILY 11/02/16 [History Confirmed Last Taken Unknown] Active Medications Acetaminophen (Tylenol) 650 mg PO Q6HP PRN PRN Reason: PAIN/FEVER > 101 Last Admin: 11/03/16 11:56 Dose: 650 mg Al Hydrox/Mg Hydrox/Simethicone (Maalox) 30 ml PO Q6HP PRN PRN Reason: Dyspepsia Bisacodyl (Dulcolax) 10 mg HI Q2-3DAYS PRN PRN Reason: Constipation Citalopram Hydrobromide (Celexa) 10 mg PO DAILY [facility] Last Admin: 11/05/16 08:06 Dose: 10 mg Dextrose (Dextrose 50%) 0 ml IV UD PRN PRN Reason: Hypoglycemia Diagnostic Test (Pha) (Accu-Chek) 1 each FS ACHS [facility] Last Admin: 11/05/16 07:25 Dose: 1 each Docusate Sodium (Colace) 100 mg PO BID [facility] Last Admin: 11/05/16 08:06 Dose: 100 mg Famotidine (Pepcid) 20 mg IV Q12 [facility] Last Admin: 11/05/16 08:06 Dose: 20 mg Heparin Sodium (Porcine) (Heparin) 5,000 unit SQ Q12 [facility] Last Admin: 11/05/16 08:06 Dose: 5,000 unit Ceftriaxone Sodium 2 gm/ (Dextrose) 50 mls @ 100 mls/hr IV DAILY [facility] Last Admin: 11/05/16 08:13 Dose: 100 mls/hr Ibuprofen (Motrin) 600 mg PO QIDP PRN PRN Reason: PAIN/FEVER > 101 Last Admin: 11/05/16 11:23 Dose: 600 mg Insulin Human Lispro (Humalog) 0 unit SQ ACHS [facility] PRN Reason: Protocol Last Admin: 11/05/16 07:26 Dose: Not Given Levothyroxine Sodium (Synthroid) 75 mcg PO ACB [facility] Last Admin: 11/05/16 08:06 Dose: 75 mcg Magnesium Hydroxide (Milk Of Magnesia) 30 ml PO DAILYP PRN PRN Reason: Constipation Naloxone HCl (Narcan) 0.1 mg IV Q2MIN PRN PRN Reason: Opiate Reversal Ondansetron HCl (Zofran) 4 mg IV Q6HP PRN PRN Reason: Nausea And Vomiting Last Admin: 11/04/16 17:53 Dose: 4 mg Oxybutynin Chloride (Ditropan) 5 mg PO DAILY [facility] Last Admin: 11/05/16 08:06 Dose: 5 mg Potassium/Phosphorus/Sodium (Neutra Phos) 1 packet PO BID [facility] Last Admin: 11/05/16 08:02 Dose: 1 packet Promethazine HCl (Phenergan) 12.5 mg IV Q6HP PRN PRN Reason: Nausea And Vomiting Sodium Biphosphate/Sodium Phosphate (Fleets Adult) 1 dose HI Q3-4DAYS PRN PRN Reason: Constipation Sodium Chloride (Saline Flush) 10 ml IV Q8 [facility] Last Admin: 11/05/16 05:31 Dose: Not Given Medical - DS: Hosp Hospital course: Mr. Espinosa is a 66 year old female who [facility] with AMS weakn short of breath, in the ER she was found to have UTI, with right CVA tenderness , she had elevated wbc, increased oxygen requirement and was tachycardic, She was admitted to the hospital with acute pyelonephritis, sepsis. Acute pyelonephritits / sepsis: patient was treated with IV rocephin, IV fluids , the patient responded to the treatment well. her urine culture was positive for ecoli, sensitive to cephalosporin, her blood culture was positive for same ecoli. The patient repeat blood culture was negative x 24 hrs, The patient will be discharged home with po antibiotics x 13 more days. she was able to ambulate by kb self, tolerate po well and had no complaints on the day of discharge Her was at bed side who agreed with the plan of care The patient will continue her home medications as before no changes have been made. Discharge diagnosis: Pyelnonephritits - Time Spent with Patient Total time spent providing and/or coordinating discharge services: Greater than 30 minutes Medical - DS: Exam - Constitutional Vitals: Vital Signs Temp Pulse Resp BP BP Pulse Ox 11/05/16 04:00 97.9 F 82 16 168/99 95 11/05/16 00:00 97.9 F 81 18 175/95 95 11/04/16 19:55 99.8 F H 20 155/78 95 11/04/16 15:07 97.8 F 20 176/90 95 Intake and Output 11/04/16 11/05/16 11/05/16 21:59 05:59 13:59 Intake Total 320 / 320 1300 / 1300 1000 / 1000 Output Total 500 / 500 1600 / 1600 Balance -180 / -180 -300 / -300 1000 / 1000 Intake: IV 1000 / 1000 1000 / 1000 Sodium Chloride 0.9% 1, 1000 / 1000 1000 / 1000 000 ml @ 100 mls/hr IV . Q10H [facility] Rx#:[id number] Oral 320 / 320 300 / 300 Output: Void Amount 500 / 500 1600 / 1600 Other: Meal Dinner Percent of Meal Consumed 50% Feeding Ability Assist with Tray Set Up Weight 173 lb 11.2 oz General appearance: cooperative, no acute distress - Eye Eye exam: Present: PERRL. Absent: scleral icterus - Neck Neck exam: Present: normal inspection - Respiratory Respiratory exam: Present: normal respiratory exam. Absent: accessory muscle use, stridor, wheezes - Cardiovascular Cardiovascular exam: Present: normal rate and rhythm, +S1, +S2 - GI/Abdominal GI/Abdominal exam: Present: normal bowel sounds, soft - Neurological Exam Neurological exam: Present: alert, CN II-XII intact, normal gait, oriented X3. Absent: motor sensory deficit Medical - DS: Data Labs on day of discharge: Labs from last 24 hours 11/05/16 11/05/16 03:40 03:40 WBC 4.4 L RBC 4.06 Hgb 11.0 L Hct 34.3 L MCV 84.6 MCH 27.2 MCHC 32.2 RDW 14.3 Plt Count 173 MPV 7.4 Gran % 62.0 Lymph % (Auto) 18.9 [place] % (Auto) 14.3 H Eos % (Auto) 3.9 Baso % (Auto) 0.9 Gran # 2.7 Lymph # 0.8 L [place] # 0.6 Eos # 0.2 Baso # 0 Sodium 144 Potassium 3.4 Chloride 107 Carbon Dioxide 25 Anion Gap 12.0 BUN 6 L Creatinine 0.7 GFR Calculation 90 Glucose 107 H Uric Acid 2.7 Calcium 8.4 L Phosphorus 2.4 L Magnesium 1.9 Total Bilirubin 0.3 Direct Bilirubin < 0.2 GGT 38 H AST 18 ALT 12 Alkaline Phosphatase 90 Lactate Dehydrogenase 158 Total Protein 5.9 Albumin 3.1 L Globulin 2.8 Albumin/Globulin Ratio 1.1 Triglycerides 165 H Preliminary micro results at discharge 11/04/16 09:25 Blood Culture - Preliminary Blood 11/04/16 09:30 Blood Culture - Preliminary Blood Medical - DS: A/P - Patient/Caregiver Discharge Instructions Activity: increase activity as tolerated Diet: Consistent Carbohydrate Additional Instructions: Follow up with PCP in 7 days Go to ER if worsening situation, fever, chills, chest pains or shortness of breath. Complete your course of antibiotic, total of 13 days. - Problem Maintenance (1) Pyelonephritis, acute Status: Acute (2) Sepsis Status: Acute (3) Hypertension Status: Acute (4) Diabetes mellitus Status: Acute (5) Back pain Status: Acute (6) Acute respiratory failure with hypoxia Status: Acute (7) Bacteremia due to Gram-negative bacteria Status: Acute - Follow up Plan Follow up with: Mohinder Malik MD [Primary Care Provider] - Disposition: Home, Self-Care Prognosis: Fair Rehab Potential: Fair I certify that the patient requires SNF services: No Medical - DS: Qual - VTE Deep Vein Thrombosis/Pulmonary Embolism Present on Admission: No
== END 2016-11-05 13:00 | disposition home or self-care (01) | DRG 871 ==
LOC: ED 17:35 → MEDSUR 22:16 → ICU 11-03 11:05
PROVIDERS: ADMIT Internal Medicine; ATTEND Internal Medicine